=== PATIENT | male | born 1955 | race African-American/Black ===

== ENCOUNTER 2024-10-29 09:50 | Emergency (ER) | payer SELFPAY ==
[~2024-10-29] VITALS: Ht 182.9 cm; Wt 82.0 kg
[2024-10-29 09:54] VITALS: O2SAT 99
[2024-10-29 11:02] LABS: DIFFERENTIAL COMMENT 0; EOSINOPHILS % 1.2 % (0.0-5.0); HEMATOCRIT. 35.9 % (42.0-52.0); HEMOGLOBIN. 11.7 g/dL (14.0-18.0); LYMPHOCYTES % 25.2 % (20.0-50.0); MEAN CORPUSCULAR HEMOGLOBIN 32.3 pg (28.0-32.0); MEAN CORPUSCULAR HGB CONC 32.6 g/dL (31.0-37.0); MEAN CORPUSCULAR VOLUME 99.1 fL (80.0-94.0); MEAN PLATELET VOLUME 10.1 fl (7.4-10.4); MONOCYTES % 10.2 % (2.0-8.0); NEUTROPHILS % 62.4 % (40.0-76.0); PLATELET 162 x1000/uL (130-400); RED BLOOD CELL COUNT 3.62 mill/uL (4.7-6.1); WHITE BLOOD COUNT 3.9 x1000/uL (4.5-11.0)
[2024-10-29 11:10] LABS: CHLORIDE 104 mEq/L (98-107); POTASSIUM 4.5 mEq/L (3.5-5.1); SODIUM 137 mEq/L (136-145)
[2024-10-29 11:11] LABS: CALCIUM 8.7 mg/dL (8.7-10.4); CARBON DIOXIDE 21 mEq/L (21-32)
[2024-10-29 11:16] LABS: CREATININE 1.1 mg/dL (0.6-1.3); GLUCOSE 187 mg/dL (70-105); UREA NITROGEN BLOOD 12 mg/dL (9-23)
[2024-10-29 12:00] VITALS: BP 133/69; PULSE 75; RESP 16; TEMP 36.7; O2SAT 100
[2024-10-29 12:00] LABS: ETHANOL BLOOD < 10 mg/dL (<10)
[2024-10-29 14:58] LABS: CLARITY URINE CLEAR (CLEAR); COLOR URINE YELLOW (YELLOW)
[2024-10-29 15:00] LABS: GLUCOSE URINE 1+ (NEGATIVE); KETONES URINE TRACE (NEGATIVE); LEUKOCYTE ESTERASE URINE NEGATIVE (NEGATIVE); NITRITE URINE NEGATIVE (NEGATIVE); OCCULT BLOOD URINE TRACE (NEGATIVE); PROTEIN URINE TRACE (NEGATIVE); SPECIFIC GRAVITY URINE 1.019 (1.005-1.030); UROBILINOGEN URINE 0.2 E.U./dL (0.2-1.0)
[2024-10-29 15:34] LABS: RBC URINE NONE SEEN /hpf (0-2); SQUAMOUS EPITHELIAL CELL URINE 1+ /lpf (RARE/1+); WBC URINE 0-2 /hpf (0-2)
[2024-10-29 15:35] LABS: BACTERIA URINE NONE SEEN; CALCIUM OXALATE CRYSTALS URINE 1+ /lpf; HYALINE CASTS URINE 0-5 /lpf
[2024-10-29 16:45] LABS: *AMPHETAMINES SCREEN URINE NEGATIVE (NEGATIVE)
[2024-10-29 16:46] LABS: *BARBITURATES SCREEN URINE NEGATIVE (NEGATIVE); *BENZODIAZEPINES SCREEN URINE NEGATIVE (NEGATIVE); *COCAINE SCREEN URINE NEGATIVE (NEGATIVE); CANNABINOID URINE SCREEN NEGATIVE (NEGATIVE); ECSTASY MDMA SCREEN URINE NEGATIVE (NEGATIVE); METHADONE URINE SCREEN NEGATIVE (NEGATIVE); OPIATES URINE SCREEN NEGATIVE (NEGATIVE); PHENCYCLIDINE URINE SCREEN NEGATIVE (NEGATIVE)
== END 2024-10-29 12:52 | disposition home or self-care (01) ==
LOC: ER 09:56
DX: R56.9 Unspecified convulsions (principal); I67.82 Cerebral ischemia
CPT/HCPCS: 36415; 71045; 80048; 80305; 80320; 81003; 85025; 99284; G0480